=== PATIENT | female | born 1975 | race Caucasian/White ===

== ENCOUNTER 2016-08-25 15:58 | Outpatient (CLI) | payer OTHER | END 2016-08-25 16:00 | LOC: LABRHC 15:58 | PROVIDERS: ATTEND Physician Assistant | DX: R30.0 Dysuria (principal) | CPT/HCPCS: 87086 ==

== ENCOUNTER 2018-09-16 18:09 | Outpatient (CLI) | payer OTHER ==
[2018-09-16 19:11] LABS: eGFR (Non-African) > 60
[2018-09-16 19:33] LABS: MEAN CORPUSCULAR HEMOGLOBIN 30.6 pg (28.0-34.0)
[2018-09-16 19:34] LABS: ANISOCYTOSIS 1+ (NEGATIVE); BASOPHILS % 0 % (0-2); EOSINOPHILS % 35 % (0-7); MONOCYTES % 3 % (0-11); SEGMENTED NEUTROPHILS % 21 % (39-79)
== END 2018-09-16 18:12 ==
LOC: LAB 18:09
PROVIDERS: ATTEND Family Medicine
DX: R11.2 Nausea with vomiting, unspecified (principal)
CPT/HCPCS: 36415; 80053; 85025